=== PATIENT | female | born 1970 | race Caucasian/White ===

== ENCOUNTER 2017-12-27 06:23 | Emergency (ER) | payer MEDICAID ==
[~2017-12-27] VITALS: Ht 160 cm; Wt 106.0 kg
[2017-12-27 09:14] VITALS: BP 164/67
== END 2017-12-27 09:16 | disposition home or self-care (01) ==
LOC: ER 07:40
DX: S29.012A Strain of muscle and tendon of back wall of thorax, initial encounter (principal); Z98.890 Other specified postprocedural states; X50.0XXA Overexertion from strenuous movement or load, initial encounter; Y93.89 Activity, other specified; Y92.89 Other specified places as the place of occurrence of the external cause; Y99.8 Other external cause status
CPT/HCPCS: 81025; 99283